=== PATIENT | male | born 1955 | race Caucasian/White ===

== ENCOUNTER → 2016-03-18 | Outpatient (CLI) | payer BC ==
[~2016-03-18] MED LIST: AMLO10TA2 PO; ASPI81TA28 PO; LISI40TA PO; MULT-506 PO
[2016-03-18 09:58] LABS: BLOOD UREA NITROGEN 14 mg/dl (7-18); BUN/CREATININE RATIO 13.7 (10-20); CALCIUM 9.3 mg/dl (8.5-10.1); CARBON DIOXIDE 28 mmol/L (21-32); CHLORIDE 102 mmol/L (98-107); GLUCOSE 134 mg/dl (70-99); HDL CHOLESTEROL 38 mg/dl; POTASSIUM 3.7 mmol/L (3.5-5.1); SODIUM 140 mmol/L (136-145)
[2016-03-18 09:59] LABS: CHOLESTEROL 226 mg/dl (0-200); CHOLESTEROL/HDL RATIO 5.9; LDL CHOLESTEROL CALCULATED 143 mg/dl; TRIGLYCERIDES 227 mg/dl (0-150); VERY LOW DENSITY LIPOPROT CALC 45 mg/dl
[2016-03-18 10:29] LABS: ESTIMATED AVERAGE GLUCOSE 126 mg/dl; HA1C FLAG Normal (Normal)
[2016-03-18 12:57] LABS: LYME DISEASE AB IGG NEG (NEG); LYME DISEASE AB IGM NEG (NEG)
== END | disposition home or self-care (01) ==
LOC: C.LAB1850 07:38
PROVIDERS: ATTEND Family Medicine
DX: I10 Essential (primary) hypertension (principal); E78.5 Hyperlipidemia, unspecified; R73.03 Prediabetes; T14.8 Other injury of unspecified body region; W57.XXXA Bitten or stung by nonvenomous insect and other nonvenomous arthropods, initial encounter

== ENCOUNTER → 2016-03-23 | Outpatient (CLI) | payer BC ==
--- NOTE | 2016-03-23 15:54 | DIAGNOSTIC IMAGING REPORT ---
CERVICAL SPINE 3 VIEWS CLINICAL HISTORY: Cervicalgia. FINDINGS: AP, lateral, and odontoid views of the cervical spine are obtained. No prior studies are available for comparison at the time of dictation. The skeletal structures are osteopenic. There is no radiographic evidence of fracture or subluxation. Vertebral body height is maintained throughout the cervical spine. There is minimal retrolisthesis at C3-C4. Alignment is otherwise preserved. There is mild straightening of the cervical lordosis. Anterior osteophytes are seen from C5 through C7. The odontoid process and lateral masses appear intact on the open-mouth view. The spinolaminar line is preserved. There is moderate degenerative disc space narrowing at C6-C7 and mild narrowing at C5-C6. Small posterior disc osteophyte complexes at these levels may contribute to acquired compromise of the central canal. The spinous processes appear intact. There may be partial bony fusion of the spinous processes of C2 and C3. The prevertebral soft tissues are within normal limits. Partially imaged apical lung parenchyma appears clear. IMPRESSION: 1. No acute bony abdomen the is seen involving the cervical spine. 2. 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 Electronically signed by: Mal Pendleton M.D. 03/23/2016 3:52 PM Dictated Date/Time: 03/23/2016 3:50 PM
== END | disposition home or self-care (01) ==
LOC: C.LAB1850 15:16
PROVIDERS: ATTEND Family Medicine
DX: H92.09 Otalgia, unspecified ear (principal); M54.2 Cervicalgia

== ENCOUNTER → 2016-05-26 | Outpatient (CLI) | payer BC | END | disposition home or self-care (01) | LOC: C.PATH 13:26 | PROVIDERS: ATTEND Dermatology | DX: D48.5 Neoplasm of uncertain behavior of skin (principal) ==

== ENCOUNTER → 2016-05-26 | Outpatient (CLI) | payer BC | END | disposition home or self-care (01) | LOC: C.PATH 13:51 | PROVIDERS: ATTEND Dermatology | DX: C44.319 Basal cell carcinoma of skin of other parts of face (principal); L57.0 Actinic keratosis ==